=== PATIENT | female | born 1990 | race African-American/Black ===

== ENCOUNTER 2019-01-17 08:56 | Emergency (ER) | payer MEDICARE, MEDICAID ==
[~2019-01-17] VITALS: Ht 160 cm; Wt 118.2 kg
[~2019-01-17 08:56] MED LIST: CLON-528 PO; DOL10T PO; NORCO10T PO; ONDA8TAB9 PO; OXYC30TA88 PO; prozac PO
[2019-01-17] MEDS ORDERED: morphine 4 MG/ML inj SYRINge IM ONE (10:45)
[2019-01-17] MEDS ORDERED: ondansetron 4mg rapidly disintigrating tab PO ONE (10:45)
[2019-01-17 11:42] LABS: ABSOLUTE RETICS # 138800 /CUMM (23000-93000); HEMATOCRIT 31.8 % (35.0-45.0); MEAN CORPUSCULAR HEMOGLOBIN 32.3 PG (27.0-31.0); MEAN CORPUSCULAR HGB CONC 34.6 g/dL (33.0-36.5); MEAN CORPUSCULAR VOLUME 93.4 FL (78-98); MEAN PLATELET VOLUME 9.2 FL (7.4-10.4); PLATELET COUNT 263 X10'3 (140-440); RED CELL DISTRIBUTION WIDTH 19.9 % (11.5-14.5); RETICULOCYTE % (AUTO) 4.1 % (0.5-1.5); WHITE BLOOD COUNT 9.3 X10'3 (4.5-11.0)
[2019-01-17 11:46] LABS: ALANINE AMINOTRANSFERASE 18 U/L (12-78); ALBUMIN 3.4 G/DL (3.4-5.0); ALBUMIN/GLOBULIN RATIO 0.7 (1.1-1.5); ALKALINE PHOSPHATASE 87 IU/L (46-116); ANION GAP 8 (8-16); ASPARTATE AMINO TRANSFERASE 31 U/L (10-37); BILIRUBIN,TOTAL 1.1 MG/DL (0.1-1.0); BLOOD UREA NITROGEN 4 MG/DL (7-18); BUN/CREATININE RATIO 5.3 (6.6-38.0); CALCIUM 8.5 MG/DL (8.5-10.1); CHLORIDE 105 MMOL/L (99-107); CREATININE 0.76 MG/DL (0.40-0.90); LACTATE DEHYDROGENASE 424 U/L (81-234); POTASSIUM 3.9 MMOL/L (3.5-5.1); SODIUM 138 MMOL/L (135-145); TOTAL CARBON DIOXIDE 25.4 MMOL/L (24-32); TOTAL PROTEIN 8.3 G/DL (6.4-8.2); eGFR > 90 ML/MIN
[2019-01-17 11:51] LABS: GLUCOSE 98 MG/DL (70-104)
[2019-01-17] MEDS ORDERED: ketorolac trometh inj. 60 MG/2 ML VIAL IM ONE (11:55)
[2019-01-17 12:48] LABS: NUCLEATED RED BLOOD CELLS 3 /100WBC (0-0); PLATELET ESTIMATE NORMAL; TARGET CELLS 3+; TOTAL CELLS COUNTED 100
[2019-01-17 12:49] LABS: SPHEROCYTES 1+
[2019-01-17 12:50] LABS: POLYCHROMASIA FEW
[2019-01-17 12:54] LABS: ANISOCYTOSIS 2+
[2019-01-17 12:56] LABS: LARGE PLATELETS FEW; POIKILOCYTOSIS 2+
[2019-01-17 13:21] VITALS: BP 129/80
== END 2019-01-17 13:23 | disposition home or self-care (01) ==
LOC: ER 08:57
DX: M79.605 Pain in left leg (principal); Z86.718 Personal history of other venous thrombosis and embolism; Z87.01 Personal history of pneumonia (recurrent); Z86.2 Personal history of diseases of the blood and blood-forming organs and certain disorders involving the immune mechanism; Z88.8 Allergy status to other drugs, medicaments and biological substances; Z79.899 Other long term (current) drug therapy
CPT/HCPCS: 36415; 80053; 83615; 85025; 85045; 93971; 96372; 99284; J1885; J2270; J2405

== ENCOUNTER 2019-02-16 10:38 | Inpatient (IN) | payer MEDICARE, MEDICAID ==
[~2019-02-16] VITALS: Ht 160 cm; Wt 124.0 kg
[2019-02-16] MEDS ORDERED: normal saline 1000ML IV soln IVB ONE (11:25)
[2019-02-16] MEDS: morphine 4 MG/ML inj SYRINge IV PRN ×2 (11:33→12:23)
[2019-02-16 11:55] LABS: HEMATOCRIT 30.1 % (35.0-45.0); HEMOGLOBIN 10.1 g/dl (12.0-16.0); MEAN CORPUSCULAR HEMOGLOBIN 30.7 PG (27.0-31.0); MEAN CORPUSCULAR HGB CONC 33.5 g/dL (33.0-36.5); MEAN CORPUSCULAR VOLUME 91.5 FL (78-98); MEAN PLATELET VOLUME 8.5 FL (7.4-10.4); PLATELET COUNT 292 X10'3 (140-440); RED BLOOD COUNT 3.29 X10'6 (4.20-5.60); RED CELL DISTRIBUTION WIDTH 19.4 % (11.5-14.5)
[2019-02-16 12:09] LABS: ALANINE AMINOTRANSFERASE 30 U/L (12-78); ALBUMIN 3.3 G/DL (3.4-5.0); ALBUMIN/GLOBULIN RATIO 0.7 (1.1-1.5); ALKALINE PHOSPHATASE 103 IU/L (46-116); ANION GAP 5 (8-16); ASPARTATE AMINO TRANSFERASE 47 U/L (10-37); BILIRUBIN,TOTAL 1.8 MG/DL (0.1-1.0); BLOOD UREA NITROGEN 3 MG/DL (7-18); BUN/CREATININE RATIO 3.6 (6.6-38.0); CALCIUM 8.2 MG/DL (8.5-10.1); CHLORIDE 105 MMOL/L (99-107); CREATININE 0.83 MG/DL (0.40-0.90); GLUCOSE 119 MG/DL (70-104); LIPASE 88 U/L (73-393); POTASSIUM 4.4 MMOL/L (3.5-5.1); SODIUM 139 MMOL/L (135-145); TOTAL CARBON DIOXIDE 28.9 MMOL/L (24-32); TOTAL PROTEIN 7.8 G/DL (6.4-8.2); eGFR > 90 ML/MIN
[2019-02-16 12:41] LABS: WHITE BLOOD COUNT 8.7 X10'3 (4.5-11.0)
[2019-02-16 12:54] LABS: ANISOCYTOSIS 2+; LARGE PLATELETS FEW; NUCLEATED RED BLOOD CELLS 5 /100WBC (0-0); PLATELET ESTIMATE NORMAL; POIKILOCYTOSIS 2+; TOTAL CELLS COUNTED 100
[2019-02-16 12:55] LABS: POLYCHROMASIA FEW; SPHEROCYTES 1+; TARGET CELLS 2+
[2019-02-16 12:56] LABS: ELLIPTOCYTES 1+
--- NOTE | 2019-02-16 13:32 | NUR ---
FIRST CONTACT WITH PT, PT IS RESTING QUIETLY IN DARK ROOM, IV TO RT UPPER ARM IS PATENT AND CLEAR, LITER BOLUS OF NS IS DONE, PT C/O PAIN TO BILATERAL LEGS AND RT ARM 01/15, RESP EVEN AND UNLABORED,
--- NOTE | 2019-02-16 13:37 | NUR ---
EKG already done, Dr Waggoner aware, he is also aware pt is requesting more pain medication
[2019-02-16] MEDS ORDERED: morphine 4 MG/ML inj SYRINge IV ONE (13:40)
[2019-02-16] MEDS ORDERED: ondansetron/PF 4mg/2ml inj IV PRN (15:00)
[2019-02-16] MEDS ORDERED: mag hydrox/Alum hydrox/simeth 30ml oral suspension PO PRN (15:00)
[2019-02-16] MEDS ORDERED: diphenhydrAMINE 25mg capsule PO PRN (15:00)
[2019-02-16] MEDS ORDERED: acetaminophen 325mg tablet PO PRN (15:00)
[2019-02-16] MEDS ORDERED: potassium Cl 20 mEq SR tablet PO PRN ×2 (15:00)
[2019-02-16] MEDS ORDERED: magnesium Cl slow-release 64mg tablet PO PRN (15:00)
[2019-02-16] MEDS ORDERED: magnesium 4gm in 100ml NS 100 ML IV PRN (15:00)
[2019-02-16] MEDS ORDERED: magnesium hydroxide 30ml (MOM) UD suspension PO PRN (15:00)
[2019-02-16] MEDS ORDERED: potassium CL 10mEq/100ml bag 100 ML IV PRN ×2 (15:00)
[2019-02-16] MEDS ORDERED: magnesium 2GM in 50ml NS 50 ML IV PRN (15:00)
[2019-02-16] MEDS ORDERED: WARF-55 PO (15:05)
[2019-02-16] MEDS ORDERED: pneumococcal 23-VAL P-sac vacc 25 mcg/0.5ml vial IMVAC ONE (15:05)
[2019-02-16] MEDS ORDERED: HYDR200C PO (15:05)
[2019-02-16] MEDS ORDERED: GABA600T13 PO (15:05)
[2019-02-16] MEDS ORDERED: OXYC-658 PO (15:05)
[2019-02-16] MEDS ORDERED: CLON0.1T20 PO (15:05)
[2019-02-16] MEDS ORDERED: HYDR-3717 PO (15:05)
[2019-02-16] MEDS ORDERED: DULO60CA65 PO (15:06)
[2019-02-16] MEDS ORDERED: hydrOXYzine 10 MG tablet PO PRN (15:15)
[2019-02-16] MEDS ORDERED: cloNIDine 0.1 mg tablet PO PRN (15:15)
--- NOTE | 2019-02-16 15:48 | NUR ---
paged Dr Masters for critical value, INR 4.8
--- NOTE | 2019-02-16 16:15 | NUR ---
dr ba aware of INR 4.8
[2019-02-16] MEDS: normal saline 1000ml 1,000 ML IV SCH ×2 (16:18→23:14)
[2019-02-16 16:36] LABS: HEMATOCRIT 28.8 % (35.0-45.0); HEMOGLOBIN 9.6 g/dl (12.0-16.0); MEAN CORPUSCULAR HEMOGLOBIN 30.6 PG (27.0-31.0); MEAN CORPUSCULAR HGB CONC 33.3 g/dL (33.0-36.5); MEAN CORPUSCULAR VOLUME 91.9 FL (78-98); MEAN PLATELET VOLUME 8.4 FL (7.4-10.4); PLATELET COUNT 269 X10'3 (140-440); RED BLOOD COUNT 3.13 X10'6 (4.20-5.60); RED CELL DISTRIBUTION WIDTH 19.3 % (11.5-14.5)
[2019-02-16] MEDS ORDERED: non-formulary drug (Gabapentin 1 TAB) PO SCH (17:00)
[2019-02-16 17:18] LABS: NUCLEATED RED BLOOD CELLS 1 /100WBC (0-0); TOTAL CELLS COUNTED 100
[2019-02-16 17:19] LABS: POIKILOCYTOSIS 4+; POLYCHROMASIA FEW; SCHISTOCYTES FEW; TARGET CELLS 3+
[2019-02-16 17:20] LABS: ANISOCYTOSIS 2+; ELLIPTOCYTES 1+; PLATELET ESTIMATE NORMAL; SPHEROCYTES FEW
[2019-02-16 18:00] VITALS: BP 115/76
--- NOTE | 2019-02-16 18:50 | NUR ---
Patient in room [facility]. I have received report from SUKH Funes and had the opportunity to ask questions and assume patient care.
[2019-02-16] MEDS: morphine 2 MG/ML inj. syringe IV PRN ×2 (19:40→23:54)
[2019-02-16 20:18] VITALS: BP 115/76
[2019-02-16 20:44] VITALS: BP 123/81
[2019-02-16] MEDS ORDERED: HYDROXYUREA PO SCH (21:00)
[2019-02-16] MEDS: gabapentin 300mg capsule PO SCH ×2 (21:00→22:01)
[2019-02-16] MEDS: HYDROXYUREA PO SCH (22:01)
--- NOTE | 2019-02-16 23:07 | NUR ---
Patients blood transfusion stopped at 2240. I had entered the last set of vitals and pressed END, not realizing that Ihad not entered the one hour vitals. I asked the charge for help and she undid my last set of vitals thinking that i would be able to enter the one hour set, and then re enter the last set. It would not let us enter anything else, and the transfusion stop shows it ended at 2141 instead of 2241.VSS for 1.hr stephanie 99.0,HR99, R / 2240:99.0 99Hr, R: Patient is resting and in no apparent distress.
[2019-02-17 04:03] VITALS: BP 125/77
[2019-02-17 04:53] LABS: BASOPHILS # (AUTO) 0.1 X10'3 (0-0.2); BASOPHILS % (AUTO) 0.7 % (0-1); EOSINOPHILS # (AUTO) 0.7 X10'3 (0-0.9); EOSINOPHILS % (AUTO) 5.7 % (0-6); HEMATOCRIT 30.7 % (35.0-45.0); HEMOGLOBIN 10.5 g/dl (12.0-16.0); MEAN CORPUSCULAR HEMOGLOBIN 30.8 PG (27.0-31.0); MEAN CORPUSCULAR HGB CONC 34.1 g/dL (33.0-36.5); MEAN CORPUSCULAR VOLUME 90.3 FL (78-98); MEAN PLATELET VOLUME 9.5 FL (7.4-10.4); MONOCYTES # (AUTO) 1.3 X10'3 (0-0.9); MONOCYTES % (AUTO) 10.3 % (2-12); NEUTROPHILS # (AUTO) 6.7 X10'3 (1.8-7.7); NEUTROPHILS % (AUTO) 52.3 % (42-75); PLATELET COUNT 278 X10'3 (140-440); RED CELL DISTRIBUTION WIDTH 18.8 % (11.5-14.5); WHITE BLOOD COUNT 12.8 X10'3 (4.5-11.0)
--- NOTE | 2019-02-17 05:20 | NUR ---
[place] given at 2200,it was due at 1999. There had been an order for it to be given at 1700, prior to my shift so it was red on my eMAR when I gave the HS dose. It is still showing red but for the 2100 dose. It looks like it defaulted to the 1700 time when I gave my medication, because it shows in history that I gave the 1700 dose. On the time that I gave it on the eMAR it shows the exact time given.
[2019-02-17 05:28] LABS: ALANINE AMINOTRANSFERASE 28 U/L (12-78); ALBUMIN/GLOBULIN RATIO 0.7 (1.1-1.5); ALKALINE PHOSPHATASE 84 IU/L (46-116); ANION GAP 7 (8-16); ASPARTATE AMINO TRANSFERASE 44 U/L (10-37); BILIRUBIN,TOTAL 1.4 MG/DL (0.1-1.0); BLOOD UREA NITROGEN 3 MG/DL (7-18); CALCIUM 7.7 MG/DL (8.5-10.1); CHLORIDE 107 MMOL/L (99-107); CHOLESTEROL 111 MG/DL (0-200); CREATININE 0.75 MG/DL (0.40-0.90); GLUCOSE 106 MG/DL (70-104); HDL CHOLESTEROL 28 MG/DL (35-60); LDL CHOLESTEROL 62 MG/DL (50-100); MAGNESIUM 1.9 MG/DL (1.5-2.4); SODIUM 140 MMOL/L (135-145); TOTAL CARBON DIOXIDE 26.2 MMOL/L (24-32); TOTAL PROTEIN 7.2 G/DL (6.4-8.2); TRIGLYCERIDES 215 MG/DL (20-135); eGFR > 90 ML/MIN
[2019-02-17] MEDS: oxyCODONE IR 5mg (immed. release) tablet PO PRN ×3 (05:43→17:28)
[2019-02-17] MEDS: normal saline 1000ml 1,000 ML IV SCH ×2 (05:44→14:53)
--- NOTE | 2019-02-17 06:47 | NUR ---
Problems reprioritized. Patient report given, questions answered & plan of care reviewed with Vandana & Emilie LUZ.
[2019-02-17 07:00] VITALS: BP 143/96
[2019-02-17] MEDS ORDERED: non-formulary drug (Duloxetine HCl 1 CAP) PO SCH (08:00)
[2019-02-17] MEDS: K and/or MAG REPLACEMENT MC SCH (08:00)
[2019-02-17] MEDS: HYDROXYUREA PO SCH ×3 (08:00→21:00)
[2019-02-17] MEDS: morphine 4 MG/ML inj SYRINge IV PRN ×2 (08:04→11:17)
[2019-02-17] MEDS: gabapentin 300mg capsule PO SCH ×4 (08:06→20:21)
[2019-02-17] MEDS: duloxetine 30mg CAPSULE.DR PO SCH (08:07)
[2019-02-17 08:30] LABS: NUCLEATED RED BLOOD CELLS 3 /100WBC (0-0); TOTAL CELLS COUNTED 100
[2019-02-17 08:31] LABS: ANISOCYTOSIS 2+; PLATELET ESTIMATE NORMAL
[2019-02-17 08:32] LABS: SCHISTOCYTES FEW; SPHEROCYTES 1+; TARGET CELLS 2+
[2019-02-17 08:33] LABS: POLYCHROMASIA FEW
[2019-02-17 08:35] LABS: ELLIPTOCYTES FEW; POIKILOCYTOSIS 3+
[2019-02-17 11:30] VITALS: BP 128/89
[2019-02-17] MEDS: morphine 2 MG/ML inj. syringe IV PRN ×2 (11:45→20:21)
--- NOTE | 2019-02-17 18:39 | NUR ---
Problems reprioritized. Patient report given, questions answered & plan of care reviewed with SUKH Forbes.
[2019-02-17 19:00] VITALS: BP 143/97
[2019-02-18 00:17] VITALS: BP 133/86
[2019-02-18] MEDS: oxyCODONE IR 5mg (immed. release) tablet PO PRN ×5 (00:30→19:22)
[2019-02-18] MEDS: normal saline 1000ml 1,000 ML IV SCH ×3 (00:32→20:49)
[2019-02-18 06:34] LABS: BASOPHILS # (AUTO) 0.1 X10'3 (0-0.2); BASOPHILS % (AUTO) 1.1 % (0-1); EOSINOPHILS # (AUTO) 0.6 X10'3 (0-0.9); EOSINOPHILS % (AUTO) 5.2 % (0-6); HEMATOCRIT 30.9 % (35.0-45.0); HEMOGLOBIN 10.4 g/dl (12.0-16.0); LYMPHOCYTES # (AUTO) 3.7 X10'3 (1.1-4.8); LYMPHOCYTES % (AUTO) 30.8 % (21-51); MEAN CORPUSCULAR HEMOGLOBIN 30.5 PG (27.0-31.0); MEAN CORPUSCULAR HGB CONC 33.8 g/dL (33.0-36.5); MEAN CORPUSCULAR VOLUME 90.4 FL (78-98); MEAN PLATELET VOLUME 9.1 FL (7.4-10.4); MONOCYTES # (AUTO) 1.1 X10'3 (0-0.9); MONOCYTES % (AUTO) 8.9 % (2-12); NEUTROPHILS # (AUTO) 6.5 X10'3 (1.8-7.7); PLATELET COUNT 294 X10'3 (140-440); RED BLOOD COUNT 3.41 X10'6 (4.20-5.60); RED CELL DISTRIBUTION WIDTH 18.5 % (11.5-14.5); WHITE BLOOD COUNT 12.1 X10'3 (4.5-11.0)
[2019-02-18] MEDS: duloxetine 30mg CAPSULE.DR PO SCH (06:41)
--- NOTE | 2019-02-18 06:41 | NUR ---
Problems reprioritized. Patient report given, questions answered & plan of care reviewed with Emilie Ross RN.
[2019-02-18] MEDS: gabapentin 300mg capsule PO SCH ×4 (06:42→20:45)
[2019-02-18 06:44] LABS: ALANINE AMINOTRANSFERASE 24 U/L (12-78); ALBUMIN/GLOBULIN RATIO 0.7 (1.1-1.5); ALKALINE PHOSPHATASE 79 IU/L (46-116); ANION GAP 8 (8-16); ASPARTATE AMINO TRANSFERASE 36 U/L (10-37); BILIRUBIN,TOTAL 1.6 MG/DL (0.1-1.0); BLOOD UREA NITROGEN 3 MG/DL (7-18); BUN/CREATININE RATIO 4.1 (6.6-38.0); CALCIUM 7.9 MG/DL (8.5-10.1); CHLORIDE 107 MMOL/L (99-107); CREATININE 0.74 MG/DL (0.40-0.90); GLUCOSE 88 MG/DL (70-104); MAGNESIUM 1.9 MG/DL (1.5-2.4); POTASSIUM 4.1 MMOL/L (3.5-5.1); SODIUM 142 MMOL/L (135-145); TOTAL CARBON DIOXIDE 27.5 MMOL/L (24-32); TOTAL PROTEIN 7.3 G/DL (6.4-8.2); eGFR > 90 ML/MIN
[2019-02-18 06:57] VITALS: BP 123/81
--- NOTE | 2019-02-18 07:00 | NUR ---
Patient in room [facility]. I have received report from SUKH Forbes and had the opportunity to ask questions and assume patient care.
[2019-02-18 07:17] LABS: PLATELET ESTIMATE NORMAL
[2019-02-18 07:18] LABS: ANISOCYTOSIS 2+; HYPOCHROMASIA 1+
[2019-02-18 07:19] LABS: POLYCHROMASIA 2+; SICKLE CELLS FEW; TARGET CELLS 2+
[2019-02-18] MEDS: HYDROXYUREA PO SCH ×2 (08:00→12:43)
[2019-02-18] MEDS: K and/or MAG REPLACEMENT MC SCH (08:00)
[2019-02-18 12:00] VITALS: BP 140/89
[2019-02-18] MEDS ORDERED: acetaminophen 325mg tablet PO PRN (12:30)
[2019-02-18 18:00] VITALS: BP_SYST 102; BP_SYST 153; BP_DIAS 63; BP_DIAS 84
--- NOTE | 2019-02-18 18:47 | NUR ---
Problems reprioritized. Patient report given, questions answered & plan of care reviewed with SUKH Forbes.
--- NOTE | 2019-02-18 18:51 | NUR ---
Patient in room [facility]. I have received report from Emilie Ross RN and had the opportunity to ask questions and assume patient care.
[2019-02-18] MEDS ORDERED: warfarin 5mg tablet PO ONE (21:00)
[2019-02-18] MEDS: morphine 2 MG/ML inj. syringe IV PRN (23:52)
[2019-02-19] VITALS: BP 125/84
--- NOTE | 2019-02-19 00:56 | NUR ---
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 She did not complain of SOB. Patient states that the pain is at 7-8 and it feels like a sharp, throbbing pain. . She also stated that she thinks the pain is from her sickle cell. VSS: 126/86, HR: 102,R:15, 95% o2. I called tele and she is in Sinus Rhythm, HR running in the 90's. Morphine 4mg was given. @ 7685. Patient says a couple mins after morphine was given that her pain is now a 6/7 and the sharp/throb is not as bad. Hospitalist was paged [phone], He asked if patient had Morphine, i informed him that I already gave it,no new orders given. 0005: checked on patient. She is resting with eyes closed, in no apparent distress. 0011: checked pt and she is still resting with eyes closed in no apparent distress. Will continue to monitor.
[2019-02-19] MEDS: oxyCODONE IR 5mg (immed. release) tablet PO PRN ×5 (03:24→21:12)
[2019-02-19 05:59] LABS: ALANINE AMINOTRANSFERASE 21 U/L (12-78); ALBUMIN 3.2 G/DL (3.4-5.0); ALBUMIN/GLOBULIN RATIO 0.7 (1.1-1.5); ALKALINE PHOSPHATASE 81 IU/L (46-116); ANION GAP 8 (8-16); ASPARTATE AMINO TRANSFERASE 29 U/L (10-37); BILIRUBIN,TOTAL 1.5 MG/DL (0.1-1.0); BLOOD UREA NITROGEN 4 MG/DL (7-18); BUN/CREATININE RATIO 5.5 (6.6-38.0); CALCIUM 8.4 MG/DL (8.5-10.1); CHLORIDE 105 MMOL/L (99-107); CREATININE 0.73 MG/DL (0.40-0.90); GLUCOSE 87 MG/DL (70-104); MAGNESIUM 1.7 MG/DL (1.5-2.4); SODIUM 140 MMOL/L (135-145); TOTAL PROTEIN 7.7 G/DL (6.4-8.2); eGFR > 90 ML/MIN
[2019-02-19 06:12] LABS: BASOPHILS # (AUTO) 0.1 X10'3 (0-0.2); HEMOGLOBIN 10.5 g/dl (12.0-16.0); MONOCYTES # (AUTO) 1.2 X10'3 (0-0.9)
[2019-02-19 06:15] LABS: BASOPHILS % (AUTO) 0.9 % (0-1); EOSINOPHILS # (AUTO) 0.7 X10'3 (0-0.9); EOSINOPHILS % (AUTO) 5.5 % (0-6); HEMATOCRIT 31.3 % (35.0-45.0); LYMPHOCYTES # (AUTO) 3.8 X10'3 (1.1-4.8); LYMPHOCYTES % (AUTO) 30.4 % (21-51); MEAN CORPUSCULAR HEMOGLOBIN 30.9 PG (27.0-31.0); MEAN CORPUSCULAR HGB CONC 33.5 g/dL (33.0-36.5); MEAN PLATELET VOLUME 9.2 FL (7.4-10.4); MONOCYTES % (AUTO) 9.8 % (2-12); NEUTROPHILS # (AUTO) 6.7 X10'3 (1.8-7.7); NEUTROPHILS % (AUTO) 53.4 % (42-75); PLATELET COUNT 299 X10'3 (140-440); RED CELL DISTRIBUTION WIDTH 18.2 % (11.5-14.5); WHITE BLOOD COUNT 12.6 X10'3 (4.5-11.0)
--- NOTE | 2019-02-19 06:44 | NUR ---
Problems reprioritized. Patient report given, questions answered & plan of care reviewed with Diamond LUZ.
[2019-02-19 07:00] VITALS: BP 120/79
[2019-02-19 07:17] LABS: ANISOCYTOSIS 2+; PLATELET ESTIMATE NORMAL
[2019-02-19 07:18] LABS: POLYCHROMASIA 2+
[2019-02-19 07:19] LABS: POIKILOCYTOSIS 2+; SCHISTOCYTES FEW; TARGET CELLS 2+; TEAR DROP CELLS FEW
[2019-02-19] MEDS: K and/or MAG REPLACEMENT MC SCH (08:00)
[2019-02-19] MEDS: HYDROXYUREA PO SCH ×3 (08:00→21:00)
[2019-02-19] MEDS: gabapentin 300mg capsule PO SCH ×4 (08:24→21:07)
[2019-02-19] MEDS: duloxetine 30mg CAPSULE.DR PO SCH (08:24)
[2019-02-19] MEDS: normal saline 1000ml 1,000 ML IV SCH ×2 (08:32→15:44)
[2019-02-19 11:50] VITALS: BP 139/89
--- NOTE | 2019-02-19 12:44 | NUR ---
Pt C/O 6/10 sharp chest pain, radiating to back. VS 143/91, HR 104, O2 94% RA. 12 lead EKG being performed, results pending.
[2019-02-19 12:45] VITALS: BP 143/91
[2019-02-19 18:00] VITALS: BP 131/90
--- NOTE | 2019-02-19 18:30 | NUR ---
Patient in room [facility]. I have received report from Dejah LUZ and had the opportunity to ask questions and assume patient care.
--- NOTE | 2019-02-19 18:32 | NUR ---
Problems reprioritized. Patient report given, questions answered & plan of care reviewed with SUKH Werner.
[2019-02-19] MEDS ORDERED: warfarin 5mg tablet PO ONE (21:00)
[2019-02-20] VITALS: BP 130/87
[2019-02-20] MEDS: normal saline 1000ml 1,000 ML IV SCH (01:02)
[2019-02-20] MEDS: oxyCODONE IR 5mg (immed. release) tablet PO PRN ×2 (03:34→08:11)
[2019-02-20 05:32] LABS: BASOPHILS # (AUTO) 0.2 X10'3 (0-0.2); BASOPHILS % (AUTO) 1.4 % (0-1); EOSINOPHILS # (AUTO) 1.2 X10'3 (0-0.9); EOSINOPHILS % (AUTO) 9.7 % (0-6); HEMATOCRIT 32.5 % (35.0-45.0); HEMOGLOBIN 10.9 g/dl (12.0-16.0); LYMPHOCYTES # (AUTO) 3.1 X10'3 (1.1-4.8); LYMPHOCYTES % (AUTO) 24.5 % (21-51); MEAN CORPUSCULAR HEMOGLOBIN 30.7 PG (27.0-31.0); MEAN CORPUSCULAR HGB CONC 33.6 g/dL (33.0-36.5); MEAN CORPUSCULAR VOLUME 91.3 FL (78-98); MEAN PLATELET VOLUME 8.9 FL (7.4-10.4); MONOCYTES # (AUTO) 1.3 X10'3 (0-0.9); MONOCYTES % (AUTO) 10.5 % (2-12); NEUTROPHILS # (AUTO) 6.8 X10'3 (1.8-7.7); NEUTROPHILS % (AUTO) 53.9 % (42-75); PLATELET COUNT 311 X10'3 (140-440); RED BLOOD COUNT 3.56 X10'6 (4.20-5.60); RED CELL DISTRIBUTION WIDTH 17.7 % (11.5-14.5); WHITE BLOOD COUNT 12.5 X10'3 (4.5-11.0)
[2019-02-20 05:48] LABS: ALANINE AMINOTRANSFERASE 20 U/L (12-78); ALBUMIN 3.3 G/DL (3.4-5.0); ALBUMIN/GLOBULIN RATIO 0.7 (1.1-1.5); ALKALINE PHOSPHATASE 78 IU/L (46-116); ANION GAP 8 (8-16); ASPARTATE AMINO TRANSFERASE 34 U/L (10-37); BILIRUBIN,TOTAL 1.3 MG/DL (0.1-1.0); BLOOD UREA NITROGEN 5 MG/DL (7-18); BUN/CREATININE RATIO 6.4 (6.6-38.0); CALCIUM 9.4 MG/DL (8.5-10.1); CHLORIDE 104 MMOL/L (99-107); CREATININE 0.78 MG/DL (0.40-0.90); GLUCOSE 101 MG/DL (70-104); MAGNESIUM 1.7 MG/DL (1.5-2.4); POTASSIUM 3.8 MMOL/L (3.5-5.1); SODIUM 140 MMOL/L (135-145); TOTAL PROTEIN 7.9 G/DL (6.4-8.2); eGFR > 90 ML/MIN
--- NOTE | 2019-02-20 06:00 | NUR ---
Problems reprioritized. Patient report given, questions answered & plan of care reviewed with Makenna LUZ.
--- NOTE | 2019-02-20 06:30 | NUR ---
Patient in room [facility]. I have received report from Debbi LUZ and had the opportunity to ask questions and assume patient care.
[2019-02-20 07:23] VITALS: BP 133/85
[2019-02-20] MEDS: K and/or MAG REPLACEMENT MC SCH (08:00)
[2019-02-20] MEDS: HYDROXYUREA PO SCH (08:00)
[2019-02-20] MEDS: gabapentin 300mg capsule PO SCH (08:07)
[2019-02-20] MEDS: duloxetine 30mg CAPSULE.DR PO SCH (08:07)
[2019-02-20 08:17] LABS: ANISOCYTOSIS 1+; PLATELET ESTIMATE NORMAL; TARGET CELLS 3+
[2019-02-20 08:18] LABS: POIKILOCYTOSIS 1+; POLYCHROMASIA 2+
[2019-02-20] MEDS ORDERED: OXYC10TA47 PO (09:12)
--- NOTE | 2019-02-20 09:33 | NUR ---
Dr. Masters currently working on discharge.
--- NOTE | 2019-02-20 10:00 | NUR ---
Patient is discharged on nursing end. Waiting on MD to bring medication scrip for pain medications.
--- NOTE | 2019-02-20 11:07 | NUR ---
Patient discharged, taken by to [facility]. Belongings retrieved from security. A&Ox4. All education completed with patients. Patient aware of next doses of medications at home. Patient has pain medication scrip in hand to take to her pharmacy.
== END 2019-02-20 11:05 | disposition home or self-care (01) | DRG 812 ==
LOC: ER 10:39 → SUR 3N 17:57 → CMPBEDREQ 19:04
PROVIDERS: ADMIT Family Medicine; ATTEND Family Medicine
PROC: 30233N1 Transfusion of Nonautologous Red Blood Cells into Peripheral Vein, Percutaneous Approach (ICD-10-PCS; principal; 2019-02-16)
PROC: 3E0234Z Introduction of Serum, Toxoid and Vaccine into Muscle, Percutaneous Approach (ICD-10-PCS; 2019-02-16)
DX: D57.00 Hb-SS disease with crisis, unspecified (principal); Z68.42 Body mass index [BMI] 45.0-49.9, adult; E66.01 Morbid (severe) obesity due to excess calories; D64.9 Anemia, unspecified; F41.9 Anxiety disorder, unspecified; D72.829 Elevated white blood cell count, unspecified; Z83.2 Family history of diseases of the blood and blood-forming organs and certain disorders involving the immune mechanism; Z86.718 Personal history of other venous thrombosis and embolism; Z87.891 Personal history of nicotine dependence; Z79.01 Long term (current) use of anticoagulants; Z23 Encounter for immunization
CPT/HCPCS: 36415; 36430; 71045; 80053; 80061; 83605; 83690; 83735; 84145; 84484; 85025; 85610; 86885; 86900; 86901; 86920; 87040; 87081; 93005; 93306; 96374; 99285; G0378; J2270; J7030; P9016; Q0163

== ENCOUNTER 2019-03-01 22:12 | Inpatient (IN) | payer MEDICARE, MEDICAID ==
[~2019-03-01] VITALS: Ht 160 cm; Wt 118.2 kg
[~2019-03-01 22:12] MED LIST changes: -CLON-528 PO; +CLON0.1T20 PO; -DOL10T PO; +DULO60CA65 PO; +GABA600T13 PO; +HYDR-3717 PO; +HYDR200C PO; -NORCO10T PO; -ONDA8TAB9 PO; +OXYC-658 PO; +OXYC10TA47 PO; -OXYC30TA88 PO; +WARF-55 PO; -prozac PO
[2019-03-01 22:59] LABS: PARTIAL THROMBOPLASTIN TIME 41 SECONDS (22-32)
[2019-03-01 23:02] LABS: ALANINE AMINOTRANSFERASE 17 U/L (12-78); ALBUMIN 4.2 G/DL (3.4-5.0); ALBUMIN/GLOBULIN RATIO 0.8 (1.1-1.5); ALKALINE PHOSPHATASE 75 IU/L (46-116); ANION GAP 11 (8-16); ASPARTATE AMINO TRANSFERASE 26 U/L (10-37); BILIRUBIN,TOTAL 1.4 MG/DL (0.1-1.0); BLOOD UREA NITROGEN 5 MG/DL (7-18); BUN/CREATININE RATIO 6.3 (6.6-38.0); CALCIUM 8.9 MG/DL (8.5-10.1); CHLORIDE 105 MMOL/L (99-107); GLUCOSE 99 MG/DL (70-104); POTASSIUM 3.3 MMOL/L (3.5-5.1); SODIUM 141 MMOL/L (135-145); TOTAL CARBON DIOXIDE 24.6 MMOL/L (24-32); TOTAL PROTEIN 9.2 G/DL (6.4-8.2); eGFR > 90 ML/MIN
[2019-03-01 23:06] LABS: BASOPHILS # (AUTO) 0.1 X10'3 (0-0.2); EOSINOPHILS # (AUTO) 0.1 X10'3 (0-0.9)
[2019-03-01 23:07] LABS: BASOPHILS % (AUTO) 0.8 % (0-1); EOSINOPHILS % (AUTO) 0.4 % (0-6); HEMOGLOBIN 12.5 g/dl (12.0-16.0); LYMPHOCYTES # (AUTO) 3.9 X10'3 (1.1-4.8); LYMPHOCYTES % (AUTO) 24.8 % (21-51); MEAN CORPUSCULAR HEMOGLOBIN 31.2 PG (27.0-31.0); MEAN CORPUSCULAR HGB CONC 34.6 g/dL (33.0-36.5); MEAN CORPUSCULAR VOLUME 90.1 FL (78-98); MONOCYTES % (AUTO) 6.5 % (2-12); NEUTROPHILS # (AUTO) 10.5 X10'3 (1.8-7.7); NEUTROPHILS % (AUTO) 67.5 % (42-75); PLATELET COUNT 453 X10'3 (140-440); RED CELL DISTRIBUTION WIDTH 16.5 % (11.5-14.5); WHITE BLOOD COUNT 15.6 X10'3 (4.5-11.0)
[2019-03-01] MEDS ORDERED: morphine 10mg/ml inj. IV ONE (23:25)
[2019-03-01 23:33] LABS: RED BLOOD COUNT 4.07 X10'6 (4.20-5.60); RETICULOCYTE % (AUTO) 2.2 % (0.5-1.5)
[2019-03-01] MEDS ORDERED: ondansetron/PF 4mg/2ml inj IV ONE (23:40)
[2019-03-01 23:49] LABS: PLATELET ESTIMATE INCREASED; TARGET CELLS 2+
[2019-03-01 23:50] LABS: ANISOCYTOSIS 1+
[2019-03-02] MEDS ORDERED: morphine 10mg/ml inj. IV ONE (00:40)
--- NOTE | 2019-03-02 00:43 | NUR ---
Patient continues to complain of 7/10 pain. She shows no outward signs of pain. She is resting comfortably watching a show on her phone.
--- NOTE | 2019-03-02 01:26 | NUR ---
Patient continues to complain of 6/10 pain. She is in no obvious distress. Dr. Orellana updated on patient's condition.
[2019-03-02] MEDS ORDERED: acetaminophen 325mg tablet PO PRN (02:25)
[2019-03-02] MEDS ORDERED: mag hydrox/Alum hydrox/simeth 30ml oral suspension PO PRN (02:25)
[2019-03-02] MEDS ORDERED: magnesium hydroxide 30ml (MOM) UD suspension PO PRN (02:25)
[2019-03-02] MEDS ORDERED: morphine/NS 5 mg/ml CADD 50 ML IV SCH (02:25)
[2019-03-02] MEDS ORDERED: CADD PCA waste documentation MC PRN (02:25)
[2019-03-02] MEDS ORDERED: naloxone 0.4 mg/ml inj IV PRN (02:25)
[2019-03-02] MEDS ORDERED: ondansetron/PF 4mg/2ml inj IV PRN (02:25)
[2019-03-02] MEDS ORDERED: cloNIDine 0.1 mg tablet PO PRN (02:30)
[2019-03-02] MEDS ORDERED: hydrOXYzine 10 MG tablet PO PRN (02:30)
[2019-03-02 02:44] LABS: CLARITY,URINE CLEAR (Clear); COLOR,URINE YELLOW (Yellow); GLUCOSE, URINE NEGATIVE (Neg); KETONES,URINE NEGATIVE (Neg); LEUKOCYTE ESTERASE ,URINE NEGATIVE (Neg); NITRITES, URINE NEGATIVE (Neg); OCCULT BLOOD,URINE SMALL (Neg); PH,URINE 6.5 (4.8-8.0); PROTEIN,URINE 30 mg/dl (Neg); URINE HCG NEGATIVE (NEG); UROBILINOGEN,URINE 0.2 E.U/dL (0.2-1.0)
[2019-03-02 02:54] LABS: UA COLLECTION TYPE CLN CATCH MIDSTREAM
[2019-03-02 02:59] LABS: RBC,URINE 0-2 /HPF (0-2); WBC,URINE NONE SEEN /HPF (0-4)
[2019-03-02 03:00] LABS: BACTERIA,URINE FEW /HPF (Neg); SQUAMOUS EPITHELIAL CELL,UR FEW /LPF (FEW)
[2019-03-02] MEDS: normal saline 1000ml 1,000 ML IV SCH ×3 (03:08→22:22)
--- NOTE | 2019-03-02 04:00 | NUR ---
Received report from Patrick in the ED. Pt arrived via wheelchair with VSS and no signs of distress. Will continue to monitor.
[2019-03-02] MEDS: HYDROmorphone/NS 1 mg/ml CADD 50 ML IV SCH ×11 (04:26→23:00)
[2019-03-02 04:29] VITALS: BP 121/74
--- NOTE | 2019-03-02 06:00 | NUR ---
Patient in room [facility]. I have received report from SUKH Payton and had the opportunity to ask questions and assume patient care.
--- NOTE | 2019-03-02 06:15 | NUR ---
Problems reprioritized. Patient report given, questions answered & plan of care reviewed with Johana LUZ.
[2019-03-02 07:00] VITALS: BP 148/98
[2019-03-02] MEDS: docusate sod 100mg capsule PO SCH ×2 (08:00→21:21)
[2019-03-02] MEDS: duloxetine 30mg CAPSULE.DR PO SCH (08:24)
[2019-03-02] MEDS: gabapentin 300mg capsule PO SCH ×4 (08:24→21:22)
[2019-03-02] MEDS ORDERED: potassium Cl 20 mEq SR tablet PO PRN ×2 (08:55)
[2019-03-02] MEDS ORDERED: magnesium 4gm in 100ml NS 100 ML IV PRN (08:55)
[2019-03-02] MEDS ORDERED: potassium CL 10mEq/100ml bag 100 ML IV PRN (08:55)
[2019-03-02] MEDS ORDERED: magnesium Cl slow-release 64mg tablet PO PRN (08:55)
--- NOTE | 2019-03-02 10:37 | NUR ---
Yolanda Campos Rm 5614 c/o persistent pain. Will you round soon on Surgical? PAGE TO DR MERCADO
[2019-03-02 11:00] VITALS: BP 134/88
[2019-03-02] MEDS: oxyCODONE SR 10mg (sust. release) tab PO SCH ×2 (15:23→23:58)
--- NOTE | 2019-03-02 18:37 | NUR ---
Problems reprioritized. Patient report given, questions answered & plan of care reviewed with SUKH Agee .
[2019-03-02] MEDS ORDERED: warfarin 5mg tablet PO SCH (19:00)
[2019-03-02 20:00] VITALS: BP 134/87
[2019-03-02] MEDS ORDERED: warfarin 5mg tablet PO ONE (21:00)
[2019-03-03] VITALS: BP 134/94
[2019-03-03] MEDS: HYDROmorphone/NS 1 mg/ml CADD 50 ML IV SCH ×6 (01:00→11:00)
[2019-03-03] MEDS: normal saline 1000ml 1,000 ML IV SCH (04:16)
[2019-03-03 05:18] LABS: BASOPHILS # (AUTO) 0.1 X10'3 (0-0.2); HEMOGLOBIN 11.1 g/dl (12.0-16.0); MONOCYTES # (AUTO) 1.2 X10'3 (0-0.9)
[2019-03-03 05:20] LABS: BASOPHILS % (AUTO) 0.9 % (0-1); EOSINOPHILS # (AUTO) 0.6 X10'3 (0-0.9); EOSINOPHILS % (AUTO) 3.9 % (0-6); HEMATOCRIT 32.7 % (35.0-45.0); LYMPHOCYTES # (AUTO) 5.9 X10'3 (1.1-4.8); LYMPHOCYTES % (AUTO) 38.6 % (21-51); MEAN CORPUSCULAR HEMOGLOBIN 30.3 PG (27.0-31.0); MEAN CORPUSCULAR HGB CONC 33.9 g/dL (33.0-36.5); MEAN CORPUSCULAR VOLUME 89.6 FL (78-98); MONOCYTES % (AUTO) 7.7 % (2-12); NEUTROPHILS # (AUTO) 7.5 X10'3 (1.8-7.7); NEUTROPHILS % (AUTO) 48.9 % (42-75); PLATELET COUNT 371 X10'3 (140-440); RED BLOOD COUNT 3.65 X10'6 (4.20-5.60); RED CELL DISTRIBUTION WIDTH 16.3 % (11.5-14.5); WHITE BLOOD COUNT 15.2 X10'3 (4.5-11.0)
[2019-03-03 05:36] LABS: ALANINE AMINOTRANSFERASE 16 U/L (12-78); ALBUMIN 3.4 G/DL (3.4-5.0); ALBUMIN/GLOBULIN RATIO 0.8 (1.1-1.5); ALKALINE PHOSPHATASE 68 IU/L (46-116); ANION GAP 5 (8-16); ASPARTATE AMINO TRANSFERASE 22 U/L (10-37); BILIRUBIN,TOTAL 1.1 MG/DL (0.1-1.0); BLOOD UREA NITROGEN 4 MG/DL (7-18); BUN/CREATININE RATIO 5.3 (6.6-38.0); CALCIUM 8.5 MG/DL (8.5-10.1); CHLORIDE 106 MMOL/L (99-107); CREATININE 0.76 MG/DL (0.40-0.90); GLUCOSE 86 MG/DL (70-104); MAGNESIUM 1.9 MG/DL (1.5-2.4); PHOSPHORUS 3.5 MG/DL (2.3-4.5); POTASSIUM 3.9 MMOL/L (3.5-5.1); SODIUM 140 MMOL/L (135-145); TOTAL CARBON DIOXIDE 28.7 MMOL/L (24-32); TOTAL PROTEIN 7.7 G/DL (6.4-8.2); eGFR > 90 ML/MIN
[2019-03-03 06:22] LABS: LARGE PLATELETS FEW; PLATELET ESTIMATE NORMAL
[2019-03-03 07:00] VITALS: BP 142/105
--- NOTE | 2019-03-03 07:11 | NUR ---
Patient in room [facility]. I have received report from Cyndie LUZ and had the opportunity to ask questions and assume patient care.
[2019-03-03] MEDS: oxyCODONE SR 10mg (sust. release) tab PO SCH (07:55)
[2019-03-03] MEDS: duloxetine 30mg CAPSULE.DR PO SCH (07:56)
[2019-03-03] MEDS: gabapentin 300mg capsule PO SCH ×2 (07:56→13:17)
[2019-03-03] MEDS: docusate sod 100mg capsule PO SCH (07:56)
[2019-03-03 08:00] VITALS: BP 139/96
[2019-03-03 10:00] VITALS: BP 136/85
[2019-03-03] MEDS ORDERED: COL100C PO (10:33)
[2019-03-03 11:28] VITALS: BP 125/82
--- NOTE | 2019-03-03 17:56 | NUR ---
Patient was going not wanting to be discharged and I advised her of her rights and responsibilites and she could contact Medicare if she does not want to be discharged. Patient decided after speaking to her mother to be discharged. Patients discharge instructions reviewed with patient and patient verbalized understanding. Patients IV dc'd canula intact. Patient was taken to lobby to wait for mother.
== END 2019-03-03 13:20 | disposition home or self-care (01) | DRG 812 ==
LOC: ER 22:13 → SUR 3N 03-02 04:11
PROVIDERS: ADMIT Internal Medicine; ATTEND Family Medicine
DX: D57.00 Hb-SS disease with crisis, unspecified (principal); Z68.41 Body mass index [BMI] 40.0-44.9, adult; R65.10 Systemic inflammatory response syndrome (SIRS) of non-infectious origin without acute organ dysfunction; Z79.01 Long term (current) use of anticoagulants; Z83.2 Family history of diseases of the blood and blood-forming organs and certain disorders involving the immune mechanism; Z86.718 Personal history of other venous thrombosis and embolism
CPT/HCPCS: 36415; 71045; 80053; 81001; 81025; 83735; 84100; 84484; 85025; 85045; 85610; 85730; 87081; 93005; 96374; 96375; 96376; 99285; G0378; J1170; J2270; J2405; J7030

== ENCOUNTER 2019-03-17 17:34 | Inpatient (IN) | payer MEDICARE, MEDICAID ==
[~2019-03-17] VITALS: Ht 160 cm; Wt 120.0 kg
[~2019-03-17 17:34] MED LIST changes: +CLON0.1T2 PO; -CLON0.1T20 PO; +COL100C PO; -OXYC10TA47 PO
[2019-03-17] MEDS ORDERED: normal saline 1000ML IV soln IVB ONE (18:15)
[2019-03-17] MEDS ORDERED: morphine 2 MG/ML inj. syringe IV PRN (18:15)
--- NOTE | 2019-03-17 19:53 | NUR ---
relieving RN for break, laborer pole crew at bedside, neurotele consult initiated
[2019-03-17 20:37] LABS: ABSOLUTE RETICS # 229800 /CUMM (23000-93000); BASOPHILS # (AUTO) 0.1 X10'3 (0-0.2); BASOPHILS % (AUTO) 0.7 % (0-1); EOSINOPHILS # (AUTO) 0.5 X10'3 (0-0.9); EOSINOPHILS % (AUTO) 3.3 % (0-6); HEMATOCRIT 37.4 % (35.0-45.0); HEMOGLOBIN 12.5 g/dl (12.0-16.0); LYMPHOCYTES # (AUTO) 2.9 X10'3 (1.1-4.8); MEAN CORPUSCULAR HEMOGLOBIN 31.3 PG (27.0-31.0); MEAN CORPUSCULAR HGB CONC 33.4 g/dL (33.0-36.5); MEAN CORPUSCULAR VOLUME 93.7 FL (78-98); MEAN PLATELET VOLUME 8.8 FL (7.4-10.4); MONOCYTES # (AUTO) 1.2 X10'3 (0-0.9); MONOCYTES % (AUTO) 7.8 % (2-12); NEUTROPHILS % (AUTO) 68.2 % (42-75); PLATELET COUNT 330 X10'3 (140-440); RED BLOOD COUNT 3.99 X10'6 (4.20-5.60); RED CELL DISTRIBUTION WIDTH 17.2 % (11.5-14.5); RETICULOCYTE % (AUTO) 5.8 % (0.5-1.5); WHITE BLOOD COUNT 14.7 X10'3 (4.5-11.0)
[2019-03-17 20:45] LABS: ALANINE AMINOTRANSFERASE 34 U/L (12-78); ALBUMIN 3.8 G/DL (3.4-5.0); ALBUMIN/GLOBULIN RATIO 0.7 (1.1-1.5); ALKALINE PHOSPHATASE 100 IU/L (46-116); ANION GAP 8 (8-16); BILIRUBIN,TOTAL 1.3 MG/DL (0.1-1.0); BLOOD UREA NITROGEN 5 MG/DL (7-18); BUN/CREATININE RATIO 7.7 (6.6-38.0); CALCIUM 9.4 MG/DL (8.5-10.1); CHLORIDE 101 MMOL/L (99-107); CREATININE 0.65 MG/DL (0.40-0.90); GLUCOSE 87 MG/DL (70-104); SODIUM 136 MMOL/L (135-145); TOTAL CARBON DIOXIDE 27.3 MMOL/L (24-32); TOTAL PROTEIN 9.3 G/DL (6.4-8.2); eGFR > 90 ML/MIN
[2019-03-17 20:46] LABS: PARTIAL THROMBOPLASTIN TIME 34 SECONDS (22-32)
[2019-03-17] MEDS ORDERED: GABA600T13 PO (20:46)
[2019-03-17] MEDS ORDERED: OXYC20TA55 PO (20:46)
[2019-03-17] MEDS ORDERED: DULO-31 PO (20:46)
[2019-03-17] MEDS ORDERED: HYDR500C2 PO (20:46)
[2019-03-17 20:56] LABS: POTASSIUM 5.2 MMOL/L (3.5-5.1)
[2019-03-17 21:04] LABS: ASPARTATE AMINO TRANSFERASE 59 U/L (10-37)
[2019-03-17] MEDS ORDERED: morphine 4 MG/ML inj SYRINge IV ONE (21:05)
[2019-03-17 21:22] LABS: PLATELET ESTIMATE NORMAL
[2019-03-17 21:23] LABS: ANISOCYTOSIS 1+; TARGET CELLS 2+
[2019-03-17 21:26] LABS: SICKLE CELLS RARE
[2019-03-17] MEDS ORDERED: normal saline 1000ml 1,000 ML IV SCH (21:36)
[2019-03-17] MEDS ORDERED: naloxone 0.4 mg/ml inj IV PRN (21:40)
[2019-03-17] MEDS ORDERED: acetaminophen 325mg tablet PO PRN (21:40)
[2019-03-17] MEDS ORDERED: mag hydrox/Alum hydrox/simeth 30ml oral suspension PO PRN (21:40)
[2019-03-17] MEDS ORDERED: CADD PCA waste documentation MC PRN (21:40)
[2019-03-17] MEDS ORDERED: magnesium hydroxide 30ml (MOM) UD suspension PO PRN (21:40)
[2019-03-17] MEDS ORDERED: ondansetron/PF 4mg/2ml inj IV PRN (21:40)
[2019-03-17] MEDS ORDERED: HYDR200C PO (21:52)
[2019-03-17] MEDS ORDERED: warfarin 5mg tablet PO SCH (21:58)
[2019-03-17] MEDS: HYDROmorphone/NS 1 mg/ml CADD 50 ML IV SCH (22:34)
--- NOTE | 2019-03-17 22:45 | NUR ---
RELIEVING RN FOR BREAK, PT STARTED ON CADD PUMP, DEMONSTRATED PROPER USE, NO QUESTIONS
[2019-03-17] MEDS ORDERED: HYDROmorphone/NS 1 mg/ml CADD 50 ML IV SCH (23:00)
--- NOTE | 2019-03-17 23:33 | NUR ---
CALLED TO GIVE REPORT. WAITING FOR RETURN CALL.
[2019-03-17 23:50] VITALS: BP 139/74
[2019-03-18] MEDS: HYDROmorphone/NS 1 mg/ml CADD 50 ML IV SCH ×4 (01:00→07:00)
[2019-03-18 02:00] VITALS: BP 116/75
[2019-03-18] MEDS ORDERED: OXYC-580 PO (02:54)
[2019-03-18] MEDS ORDERED: oxyCODONE IR 5mg (immed. release) tablet PO PRN (03:00)
[2019-03-18 06:00] VITALS: BP 124/87
[2019-03-18 06:13] LABS: CLARITY,URINE CLOUDY (Clear); COLOR,URINE YELLOW (Yellow); GLUCOSE, URINE NEGATIVE (Neg); KETONES,URINE NEGATIVE (Neg); LEUKOCYTE ESTERASE ,URINE SMALL (Neg); NITRITES, URINE NEGATIVE (Neg); OCCULT BLOOD,URINE NEGATIVE (Neg); PROTEIN,URINE NEGATIVE (Neg); UROBILINOGEN,URINE 0.2 E.U/dL (0.2-1.0)
[2019-03-18 06:14] LABS: UA COLLECTION TYPE CLN CATCH MIDSTREAM
[2019-03-18 06:15] LABS: BASOPHILS # (AUTO) 0.1 X10'3 (0-0.2); BASOPHILS % (AUTO) 1.1 % (0-1); EOSINOPHILS # (AUTO) 0.6 X10'3 (0-0.9); EOSINOPHILS % (AUTO) 4.1 % (0-6); HEMATOCRIT 32.3 % (35.0-45.0); HEMOGLOBIN 11.1 g/dl (12.0-16.0); LYMPHOCYTES # (AUTO) 3.5 X10'3 (1.1-4.8); LYMPHOCYTES % (AUTO) 24.8 % (21-51); MEAN CORPUSCULAR HEMOGLOBIN 31.7 PG (27.0-31.0); MEAN CORPUSCULAR HGB CONC 34.3 g/dL (33.0-36.5); MEAN CORPUSCULAR VOLUME 92.3 FL (78-98); MEAN PLATELET VOLUME 9.2 FL (7.4-10.4); MONOCYTES # (AUTO) 1.4 X10'3 (0-0.9); MONOCYTES % (AUTO) 9.7 % (2-12); NEUTROPHILS # (AUTO) 8.4 X10'3 (1.8-7.7); NEUTROPHILS % (AUTO) 60.3 % (42-75); PLATELET COUNT 312 X10'3 (140-440); RED BLOOD COUNT 3.49 X10'6 (4.20-5.60); RED CELL DISTRIBUTION WIDTH 17.2 % (11.5-14.5); WHITE BLOOD COUNT 13.9 X10'3 (4.5-11.0)
--- NOTE | 2019-03-18 06:15 | NUR ---
Patient in room [facility] 4013. I have received report from Jania/Lisandra Foster and had the opportunity to ask questions and assume patient care.
[2019-03-18 06:18] LABS: SQUAMOUS EPITHELIAL CELL,UR MANY /LPF (FEW)
[2019-03-18 06:19] LABS: BACTERIA,URINE 2+ /HPF (Neg); RBC,URINE 0-2 /HPF (0-2)
--- NOTE | 2019-03-18 06:26 | NUR ---
Problems reprioritized. Patient report given, questions answered & plan of care reviewed with SUKH Phan.
[2019-03-18 07:24] LABS: ALANINE AMINOTRANSFERASE 32 U/L (12-78); ALBUMIN 3.3 G/DL (3.4-5.0); ALBUMIN/GLOBULIN RATIO 0.7 (1.1-1.5); ALKALINE PHOSPHATASE 83 IU/L (46-116); ANION GAP 11 (8-16); ASPARTATE AMINO TRANSFERASE 38 U/L (10-37); BILIRUBIN,TOTAL 1.4 MG/DL (0.1-1.0); BLOOD UREA NITROGEN 5 MG/DL (7-18); CALCIUM 8.4 MG/DL (8.5-10.1); CHLORIDE 103 MMOL/L (99-107); CREATININE 0.71 MG/DL (0.40-0.90); GLUCOSE 98 MG/DL (70-104); POTASSIUM 3.6 MMOL/L (3.5-5.1); SODIUM 138 MMOL/L (135-145); TOTAL CARBON DIOXIDE 24.2 MMOL/L (24-32); TOTAL PROTEIN 8.3 G/DL (6.4-8.2); eGFR > 90 ML/MIN
[2019-03-18 07:33] LABS: CHOLESTEROL 157 MG/DL (0-200); HDL CHOLESTEROL 39 MG/DL (35-60); LDL CHOLESTEROL 106 MG/DL (50-100); TRIGLYCERIDES 144 MG/DL (20-135)
[2019-03-18] MEDS ORDERED: FLU VACC QS2019-20 36MOS UP/PF 60 MCG/0.5 ML SYRINGE IMVAC ONE (08:00)
[2019-03-18 08:02] LABS: ANISOCYTOSIS 1+; NUCLEATED RED BLOOD CELLS 1 /100WBC (0-0); PLATELET ESTIMATE NORMAL; TARGET CELLS 2+; TOTAL CELLS COUNTED 100
[2019-03-18] MEDS ORDERED: HYDROcodone/acetaminophen 5mg/325mg tablet PO PRN ×2 (08:55)
[2019-03-18] MEDS ORDERED: potassium CL 10mEq/100ml bag 100 ML IV PRN (08:55)
[2019-03-18] MEDS ORDERED: magnesium Cl slow-release 64mg tablet PO PRN (08:55)
[2019-03-18] MEDS ORDERED: magnesium 4gm in 100ml NS 100 ML IV PRN (08:55)
[2019-03-18] MEDS ORDERED: potassium Cl 20 mEq SR tablet PO PRN ×2 (08:55)
[2019-03-18] MEDS: duloxetine 30mg CAPSULE.DR PO SCH (09:59)
[2019-03-18 10:00] VITALS: BP 117/78
[2019-03-18] MEDS: gabapentin 300mg capsule PO SCH ×3 (10:00→22:31)
[2019-03-18] MEDS: dextrose 5%-normal saline 1,000 ML IV SCH ×2 (11:31→19:23)
--- NOTE | 2019-03-18 12:01 | NUR ---
Pt declined flu vaccine, indicates she will get one after discharge with PCP
[2019-03-18] MEDS: HYDROXYUREA 200 MG PO SCH ×2 (13:00→21:00)
[2019-03-18] MEDS ORDERED: oxyCODONE/APAP 5-325mg tablet PO PRN (13:00)
--- NOTE | 2019-03-18 14:18 | NUR ---
hydroxyurea medication not available from pharm
[2019-03-18] MEDS: oxyCODONE/APAP 10/325mg tablet PO PRN ×2 (16:35→22:31)
[2019-03-18 18:00] VITALS: BP 122/82
--- NOTE | 2019-03-18 18:05 | NUR ---
Problems reprioritized. Patient report given, questions answered & plan of care reviewed with Lisandra Foster
[2019-03-18] MEDS: CefTRIAXone/D5W-Rocephin 1gm 50 ML IV SCH (19:53)
[2019-03-18] MEDS ORDERED: warfarin 5mg tablet PO ONE (21:00)
[2019-03-18 22:00] VITALS: BP 135/92
[2019-03-18] MEDS: Melatonin 3mg tablet PO SCH (22:31)
[2019-03-19 02:00] VITALS: BP 135/91
[2019-03-19] MEDS: dextrose 5%-normal saline 1,000 ML IV SCH ×3 (03:30→16:55)
[2019-03-19] MEDS: oxyCODONE/APAP 10/325mg tablet PO PRN ×4 (04:27→22:04)
[2019-03-19 06:00] VITALS: BP 113/67
--- NOTE | 2019-03-19 06:00 | NUR ---
Patient in room [facility] 4013. I have received report from Lisandra Foster and had the opportunity to ask questions and assume patient care.
--- NOTE | 2019-03-19 06:06 | NUR ---
Problems reprioritized. Patient report given, questions answered & plan of care reviewed with SUKH Phan.
[2019-03-19 07:24] LABS: BASOPHILS # (AUTO) 0.1 X10'3 (0-0.2); BASOPHILS % (AUTO) 0.6 % (0-1); EOSINOPHILS # (AUTO) 0.2 X10'3 (0-0.9); EOSINOPHILS % (AUTO) 1.8 % (0-6); HEMOGLOBIN 10.8 g/dl (12.0-16.0); LYMPHOCYTES # (AUTO) 2.4 X10'3 (1.1-4.8); MEAN CORPUSCULAR HEMOGLOBIN 30.7 PG (27.0-31.0); MEAN CORPUSCULAR HGB CONC 33.6 g/dL (33.0-36.5); MEAN CORPUSCULAR VOLUME 91.3 FL (78-98); MONOCYTES % (AUTO) 8.6 % (2-12); NEUTROPHILS # (AUTO) 8.4 X10'3 (1.8-7.7); PLATELET COUNT 311 X10'3 (140-440); RED CELL DISTRIBUTION WIDTH 16.8 % (11.5-14.5); WHITE BLOOD COUNT 12.2 X10'3 (4.5-11.0)
[2019-03-19 07:30] LABS: RED BLOOD COUNT 3.4 X10'6 (4.20-5.60); RETICULOCYTE % (AUTO) 4.5 % (0.5-1.5)
[2019-03-19 07:44] LABS: ALANINE AMINOTRANSFERASE 28 U/L (12-78); ALBUMIN 3.2 G/DL (3.4-5.0); ALBUMIN/GLOBULIN RATIO 0.7 (1.1-1.5); ALKALINE PHOSPHATASE 72 IU/L (46-116); ANION GAP 8 (8-16); ASPARTATE AMINO TRANSFERASE 31 U/L (10-37); BILIRUBIN,TOTAL 0.9 MG/DL (0.1-1.0); BLOOD UREA NITROGEN 4 MG/DL (7-18); BUN/CREATININE RATIO 5.9 (6.6-38.0); CALCIUM 8.3 MG/DL (8.5-10.1); CHLORIDE 104 MMOL/L (99-107); CREATININE 0.68 MG/DL (0.40-0.90); GLUCOSE 112 MG/DL (70-104); MAGNESIUM 1.9 MG/DL (1.5-2.4); PHOSPHORUS 3.6 MG/DL (2.3-4.5); POTASSIUM 3.8 MMOL/L (3.5-5.1); SODIUM 138 MMOL/L (135-145); TOTAL CARBON DIOXIDE 26.1 MMOL/L (24-32); TOTAL PROTEIN 8.1 G/DL (6.4-8.2); eGFR > 90 ML/MIN
[2019-03-19] MEDS: HYDROXYUREA 200 MG PO SCH ×2 (08:00→13:00)
[2019-03-19] MEDS: CefTRIAXone/D5W-Rocephin 1gm 50 ML IV SCH (08:14)
[2019-03-19] MEDS: duloxetine 30mg CAPSULE.DR PO SCH (08:14)
[2019-03-19] MEDS: gabapentin 300mg capsule PO SCH ×3 (08:14→22:06)
[2019-03-19 09:56] LABS: ANISOCYTOSIS 1+; NUCLEATED RED BLOOD CELLS 3 /100WBC (0-0); PLATELET ESTIMATE NORMAL; TOTAL CELLS COUNTED 100
[2019-03-19 09:57] LABS: POLYCHROMASIA FEW; SPHEROCYTES FEW
[2019-03-19 09:58] LABS: TARGET CELLS 3+
[2019-03-19 10:00] VITALS: BP 137/87
[2019-03-19 14:00] VITALS: BP 142/91
[2019-03-19 18:00] VITALS: BP 124/88
--- NOTE | 2019-03-19 18:26 | NUR ---
Problems reprioritized. Patient report given, questions answered & plan of care reviewed with Chuck Grajeda
[2019-03-19 20:59] LABS: CLARITY,URINE CLEAR (Clear); COLOR,URINE YELLOW (Yellow); GLUCOSE, URINE NEGATIVE (Neg); KETONES,URINE NEGATIVE (Neg); LEUKOCYTE ESTERASE ,URINE NEGATIVE (Neg); NITRITES, URINE NEGATIVE (Neg); OCCULT BLOOD,URINE MODERATE (Neg); PH,URINE 6.5 (4.8-8.0); PROTEIN,URINE TRACE mg/dl (Neg); UA COLLECTION TYPE CLN CATCH MIDSTREAM; UROBILINOGEN,URINE 0.2 E.U/dL (0.2-1.0)
[2019-03-19] MEDS ORDERED: warfarin 5mg tablet PO ONE (21:00)
[2019-03-19 21:11] LABS: BACTERIA,URINE FEW /HPF (Neg); MUCUS STRANDS FEW /LPF (Neg); SQUAMOUS EPITHELIAL CELL,UR MANY /LPF (FEW); WBC,URINE NONE SEEN /HPF (0-4)
[2019-03-19 22:00] VITALS: BP 144/92
[2019-03-19] MEDS: Melatonin 3mg tablet PO SCH (22:05)
[2019-03-19] MEDS: lactobacillus rhamnosus 10,000 MMU CELLS/CAPSULE PO SCH (22:06)
[2019-03-20] MEDS: dextrose 5%-normal saline 1,000 ML IV SCH ×2 (00:55→03:37)
[2019-03-20] MEDS: oxyCODONE/APAP 10/325mg tablet PO PRN ×2 (03:35→09:13)
[2019-03-20 06:00] VITALS: BP 136/72
--- NOTE | 2019-03-20 06:15 | NUR ---
Patient in room [facility] 4013. I have received report from KEVIN LUZ and had the opportunity to ask questions and assume patient care.
[2019-03-20 07:10] LABS: ABSOLUTE RETICS # 110100 /CUMM (23000-93000); BASOPHILS # (AUTO) 0.1 X10'3 (0-0.2); BASOPHILS % (AUTO) 0.4 % (0-1); EOSINOPHILS # (AUTO) 0.2 X10'3 (0-0.9); EOSINOPHILS % (AUTO) 1.2 % (0-6); HEMATOCRIT 30.2 % (35.0-45.0); HEMOGLOBIN 10.2 g/dl (12.0-16.0); LYMPHOCYTES % (AUTO) 23.7 % (21-51); MEAN CORPUSCULAR HEMOGLOBIN 31.3 PG (27.0-31.0); MEAN CORPUSCULAR HGB CONC 33.8 g/dL (33.0-36.5); MEAN CORPUSCULAR VOLUME 92.7 FL (78-98); MEAN PLATELET VOLUME 8.7 FL (7.4-10.4); MONOCYTES # (AUTO) 1.1 X10'3 (0-0.9); MONOCYTES % (AUTO) 8.8 % (2-12); NEUTROPHILS # (AUTO) 8.5 X10'3 (1.8-7.7); NEUTROPHILS % (AUTO) 65.9 % (42-75); PLATELET COUNT 311 X10'3 (140-440); RED BLOOD COUNT 3.26 X10'6 (4.20-5.60); RED CELL DISTRIBUTION WIDTH 16.3 % (11.5-14.5); RETICULOCYTE % (AUTO) 3.4 % (0.5-1.5); WHITE BLOOD COUNT 12.9 X10'3 (4.5-11.0)
[2019-03-20 07:31] LABS: ALANINE AMINOTRANSFERASE 21 U/L (12-78); ALBUMIN 3.2 G/DL (3.4-5.0); ALBUMIN/GLOBULIN RATIO 0.7 (1.1-1.5); ALKALINE PHOSPHATASE 67 IU/L (46-116); ANION GAP 9 (8-16); ASPARTATE AMINO TRANSFERASE 25 U/L (10-37); BLOOD UREA NITROGEN 3 MG/DL (7-18); BUN/CREATININE RATIO 4.3 (6.6-38.0); CALCIUM 7.9 MG/DL (8.5-10.1); CHLORIDE 107 MMOL/L (99-107); GLUCOSE 110 MG/DL (70-104); MAGNESIUM 1.8 MG/DL (1.5-2.4); PHOSPHORUS 2.9 MG/DL (2.3-4.5); POTASSIUM 3.3 MMOL/L (3.5-5.1); SODIUM 140 MMOL/L (135-145); TOTAL CARBON DIOXIDE 23.9 MMOL/L (24-32); TOTAL PROTEIN 7.8 G/DL (6.4-8.2); eGFR > 90 ML/MIN
[2019-03-20] MEDS: gabapentin 300mg capsule PO SCH (08:06)
[2019-03-20] MEDS: CefTRIAXone/D5W-Rocephin 1gm 50 ML IV SCH (08:07)
[2019-03-20] MEDS: duloxetine 30mg CAPSULE.DR PO SCH (08:07)
[2019-03-20] MEDS: lactobacillus rhamnosus 10,000 MMU CELLS/CAPSULE PO SCH (08:07)
[2019-03-20 10:00] VITALS: BP 113/74
[2019-03-20] MEDS ORDERED: MELA3TAB64 PO (10:08)
[2019-03-20] MEDS ORDERED: STORE MEDs IN PHARMACY MC (10:08)
[2019-03-20] MEDS ORDERED: LACT1CAP26 PO (10:08)
[2019-03-20] MEDS ORDERED: CEFD300C3 PO (10:08)
[2019-03-20] MEDS ORDERED: Non-Formulary PO (10:08)
[2019-03-20] MEDS ORDERED: warfarin 5mg tablet PO ONE (10:15)
[2019-03-20 12:25] LABS: PREOP URINE HCG NEGATIVE (NEGATIVE)
--- NOTE | 2019-03-20 13:00 | NUR ---
PATIENT DISCHARGED SAFELY WITH MOM. ALL BELONGINGS IN POSSESSION, INCLUDING HOME MEDICATIONS THAT WERE BROUGHT IN TO PHARMACY. PATIENT VERBALIZES UNDERSTANDING OF ALL DC INSTRUCTIONS.
== END 2019-03-20 13:11 | disposition home or self-care (01) | DRG 812 ==
LOC: ER 17:35 → ED HOLD 21:50 → ORTHO 4S 23:55
PROVIDERS: ADMIT Internal Medicine; ATTEND Family Medicine
DX: D57.1 Sickle-cell disease without crisis (principal); Z68.42 Body mass index [BMI] 45.0-49.9, adult; N39.0 Urinary tract infection, site not specified; F11.10 Opioid abuse, uncomplicated; F32.9 Major depressive disorder, single episode, unspecified; G89.29 Other chronic pain; Z79.01 Long term (current) use of anticoagulants; Z83.2 Family history of diseases of the blood and blood-forming organs and certain disorders involving the immune mechanism; Z86.718 Personal history of other venous thrombosis and embolism; Z28.21 Immunization not carried out because of patient refusal; Z86.73 Personal history of transient ischemic attack (TIA), and cerebral infarction without residual deficits; Z88.8 Allergy status to other drugs, medicaments and biological substances
CPT/HCPCS: 36415; 70450; 70544; 70551; 71045; 80053; 80061; 81001; 81025; 83735; 84100; 85025; 85045; 85610; 85730; 87081; 93005; 96374; 96376; 97116; 97161; 97530; 99285; G0378; J0696; J1170; J2270; J7030; J7042; Q2037

== ENCOUNTER 2019-05-26 09:39 | Emergency (ER) | payer MEDICARE, MEDICAID ==
[~2019-05-26] VITALS: Ht 162.6 cm; Wt 115.2 kg
[~2019-05-26 09:39] MED LIST changes: -CLON0.1T2 PO; -COL100C PO; +DULO-31 PO; -DULO60CA65 PO; -HYDR-3717 PO; +LACT1CAP26 PO; +MELA3TAB64 PO; +Non-Formulary PO; +OXYC-580 PO; -OXYC-658 PO; +STORE MEDs IN PHARMACY MC
[2019-05-26] MEDS ORDERED: normal saline 1000ml 1,000 ML IV ONE (11:19)
[2019-05-26] MEDS ORDERED: normal saline 1000ML IV soln IVB ONE (11:20)
[2019-05-26] MEDS ORDERED: diphenhydrAMINE 50 mg/ml inj IV ONE (11:25)
[2019-05-26] MEDS ORDERED: morphine 4 MG/ML inj SYRINge IV ONE ×2 (11:25→13:30)
[2019-05-26] MEDS ORDERED: ondansetron/PF 4mg/2ml inj IV ONE (11:45)
[2019-05-26 12:24] LABS: BASOPHILS # (AUTO) 0.2 X10'3 (0-0.2); BASOPHILS % (AUTO) 1.5 % (0-1); EOSINOPHILS # (AUTO) 0.3 X10'3 (0-0.9); EOSINOPHILS % (AUTO) 2.3 % (0-6); HEMATOCRIT 29.8 % (35.0-45.0); HEMOGLOBIN 10.3 g/dl (12.0-16.0); LYMPHOCYTES % (AUTO) 24.9 % (21-51); MEAN CORPUSCULAR HEMOGLOBIN 29.9 PG (27.0-31.0); MEAN CORPUSCULAR HGB CONC 34.6 g/dL (33.0-36.5); MEAN CORPUSCULAR VOLUME 86.6 FL (78-98); MEAN PLATELET VOLUME 8.7 FL (7.4-10.4); MONOCYTES # (AUTO) 0.9 X10'3 (0-0.9); MONOCYTES % (AUTO) 7.2 % (2-12); NEUTROPHILS # (AUTO) 7.7 X10'3 (1.8-7.7); NEUTROPHILS % (AUTO) 64.1 % (42-75); PLATELET COUNT 413 X10'3 (140-440); RED BLOOD COUNT 3.44 X10'6 (4.20-5.60); RED CELL DISTRIBUTION WIDTH 17.1 % (11.5-14.5)
--- NOTE | 2019-05-26 12:31 | NUR ---
UPDATED PT VS, SENT URINE TO LAB PER ORDERS, NOTIFIED DR MARIO PT PAIN 12/15 AFTER FIRST DOSE OF MORPHINE, NO ORDER RECEIVED AT THIS TIME.
[2019-05-26 12:40] LABS: ALANINE AMINOTRANSFERASE 13 U/L (12-78); ALBUMIN 3.2 G/DL (3.4-5.0); ALBUMIN/GLOBULIN RATIO 0.8 (1.1-1.5); ALKALINE PHOSPHATASE 69 IU/L (46-116); ANION GAP 4 (8-16); ASPARTATE AMINO TRANSFERASE 20 U/L (10-37); BILIRUBIN,TOTAL 1.3 MG/DL (0.1-1.0); BLOOD UREA NITROGEN 7 MG/DL (7-18); BUN/CREATININE RATIO 9.3 (6.6-38.0); CALCIUM 7.6 MG/DL (8.5-10.1); CHLORIDE 108 MMOL/L (99-107); CREATININE 0.75 MG/DL (0.40-0.90); GLUCOSE 90 MG/DL (70-104); POTASSIUM 3.7 MMOL/L (3.5-5.1); SODIUM 140 MMOL/L (135-145); TOTAL CARBON DIOXIDE 28.3 MMOL/L (24-32); TOTAL PROTEIN 7.2 G/DL (6.4-8.2); eGFR > 90 ML/MIN
[2019-05-26 12:44] LABS: TROPONIN I < 0.04 NG/ML (0.0-0.05)
[2019-05-26 12:48] LABS: CLARITY,URINE SLIGHTLY CLOUDY (Clear); COLOR,URINE STRAW (Yellow); GLUCOSE, URINE NEGATIVE (Neg); KETONES,URINE NEGATIVE (Neg); LEUKOCYTE ESTERASE ,URINE NEGATIVE (Neg); NITRITES, URINE NEGATIVE (Neg); OCCULT BLOOD,URINE NEGATIVE (Neg); PROTEIN,URINE NEGATIVE (Neg)
[2019-05-26 12:49] LABS: UA COLLECTION TYPE CLN CATCH MIDSTREAM
[2019-05-26 12:59] LABS: URINE HCG NEGATIVE (NEG)
[2019-05-26 13:03] LABS: BACTERIA,URINE FEW /HPF (Neg); MUCUS STRANDS FEW /LPF (Neg); RBC,URINE 0-2 /HPF (0-2); SQUAMOUS EPITHELIAL CELL,UR MODERATE /LPF (FEW); WBC,URINE 0-4 /HPF (0-4)
--- NOTE | 2019-05-26 14:16 | NUR ---
PT GIVEN JOSI MCCARTNEY OK PER DR MARIO. NO MORE PAIN MEDS AT THIS TIME. WILL BE DC WITH RX.
--- NOTE | 2019-05-26 14:27 | NUR ---
NOTIFY DR HUNT REGARDING PT'S BP. NO ORDERS RECEIVED.
[2019-05-26 15:22] VITALS: BP 130/86
== END 2019-05-26 15:24 | disposition home or self-care (01) ==
LOC: ER 09:40
DX: D57.1 Sickle-cell disease without crisis (principal); R07.89 Other chest pain; E66.9 Obesity, unspecified; Z86.718 Personal history of other venous thrombosis and embolism; Z79.01 Long term (current) use of anticoagulants; Z88.8 Allergy status to other drugs, medicaments and biological substances; Z79.899 Other long term (current) drug therapy
CPT/HCPCS: 36415; 80053; 81001; 81025; 84484; 85025; 85610; 93005; 96374; 96375; 96376; 99284; J1200; J2270; J2405; J7030

== ENCOUNTER 2019-05-29 17:52 | Emergency (ER) | payer MEDICARE, MEDICAID ==
[~2019-05-29] VITALS: Ht 160 cm; Wt 115.5 kg
[2019-05-29 19:33] LABS: BASOPHILS # (AUTO) 0.1 X10'3 (0-0.2); BASOPHILS % (AUTO) 0.5 % (0-1); EOSINOPHILS # (AUTO) 0.3 X10'3 (0-0.9); EOSINOPHILS % (AUTO) 2.5 % (0-6); HEMATOCRIT 33.3 % (35.0-45.0); HEMOGLOBIN 11.5 g/dl (12.0-16.0); LYMPHOCYTES # (AUTO) 2.8 X10'3 (1.1-4.8); LYMPHOCYTES % (AUTO) 21.2 % (21-51); MEAN CORPUSCULAR HGB CONC 34.5 g/dL (33.0-36.5); MEAN CORPUSCULAR VOLUME 87.1 FL (78-98); MONOCYTES # (AUTO) 0.8 X10'3 (0-0.9); MONOCYTES % (AUTO) 5.7 % (2-12); NEUTROPHILS # (AUTO) 9.4 X10'3 (1.8-7.7); NEUTROPHILS % (AUTO) 70.1 % (42-75); PLATELET COUNT 445 X10'3 (140-440); RED BLOOD COUNT 3.82 X10'6 (4.20-5.60); RED CELL DISTRIBUTION WIDTH 17.1 % (11.5-14.5); WHITE BLOOD COUNT 13.3 X10'3 (4.5-11.0)
[2019-05-29 19:40] LABS: RED BLOOD COUNT 3.88 X10'6 (4.20-5.60); RETICULOCYTE % (AUTO) 3.2 % (0.5-1.5)
[2019-05-29] MEDS ORDERED: morphine 10mg/ml inj. IM ONE (20:10)
[2019-05-29] MEDS ORDERED: morphine 5 MG/ML injection IM ONE (20:10)
[2019-05-29 20:46] VITALS: BP 114/68
== END 2019-05-29 20:54 | disposition home or self-care (01) ==
LOC: ER 17:53
DX: D57.1 Sickle-cell disease without crisis (principal); R07.89 Other chest pain; Z86.718 Personal history of other venous thrombosis and embolism; Z87.01 Personal history of pneumonia (recurrent); Z79.01 Long term (current) use of anticoagulants; Z88.8 Allergy status to other drugs, medicaments and biological substances
CPT/HCPCS: 36415; 85025; 85045; 93005; 96372; 99284; J2270

== ENCOUNTER 2019-09-09 10:58 | Emergency (ER) | payer MEDICARE, MEDICAID ==
[~2019-09-09] VITALS: Ht 160 cm; Wt 118.2 kg
[~2019-09-09 10:58] MED LIST changes: -LACT1CAP26 PO; -MELA3TAB64 PO; -Non-Formulary PO; -OXYC-580 PO; +OXYC10TA47 PO; -STORE MEDs IN PHARMACY MC
[2019-09-09] MEDS ORDERED: diphenhydrAMINE 50 mg/ml inj IV ONE (11:40)
[2019-09-09] MEDS ORDERED: ondansetron/PF 4mg/2ml inj IV ONE (11:40)
[2019-09-09] MEDS ORDERED: morphine 4 MG/ML inj SYRINge IV ONE ×2 (11:40→13:05)
[2019-09-09 11:47] LABS: BASOPHILS # (AUTO) 0.1 X10'3 (0-0.2); HEMATOCRIT 31.9 % (35.0-45.0); HEMOGLOBIN 10.8 g/dl (12.0-16.0); LYMPHOCYTES # (AUTO) 1.9 X10'3 (1.1-4.8); LYMPHOCYTES % (AUTO) 19.5 % (21-51); MEAN CORPUSCULAR HEMOGLOBIN 29.6 PG (27.0-31.0); MEAN CORPUSCULAR HGB CONC 33.8 g/dL (33.0-36.5); MEAN CORPUSCULAR VOLUME 87.8 FL (78-98); MEAN PLATELET VOLUME 8.8 FL (7.4-10.4); MONOCYTES # (AUTO) 0.8 X10'3 (0-0.9); MONOCYTES % (AUTO) 7.7 % (2-12); NEUTROPHILS # (AUTO) 6.2 X10'3 (1.8-7.7); NEUTROPHILS % (AUTO) 61.8 % (42-75); PLATELET COUNT 386 X10'3 (140-440); RED BLOOD COUNT 3.64 X10'6 (4.20-5.60); RED CELL DISTRIBUTION WIDTH 17.9 % (11.5-14.5)
[2019-09-09 11:56] LABS: ALANINE AMINOTRANSFERASE 14 U/L (12-78); ALBUMIN 3.6 G/DL (3.4-5.0); ALBUMIN/GLOBULIN RATIO 0.8 (1.1-1.5); ALKALINE PHOSPHATASE 82 IU/L (46-116); ANION GAP 8 (8-16); ASPARTATE AMINO TRANSFERASE 28 U/L (10-37); BILIRUBIN,TOTAL 1.2 MG/DL (0.1-1.0); BLOOD UREA NITROGEN 6 MG/DL (7-18); BUN/CREATININE RATIO 7.1 (6.6-38.0); CHLORIDE 104 MMOL/L (99-107); CREATININE 0.84 MG/DL (0.40-0.90); GLUCOSE 96 MG/DL (70-104); POTASSIUM 3.9 MMOL/L (3.5-5.1); SODIUM 138 MMOL/L (135-145); TOTAL CARBON DIOXIDE 25.6 MMOL/L (24-32); eGFR > 90 ML/MIN
--- NOTE | 2019-09-09 12:30 | NUR ---
VASSCULAR AT BEDSIDE FOR US.
[2019-09-09] MEDS ORDERED: iohexol 350MG/ML 100ml bottle IV ONE ×2 (13:00→13:35)
--- NOTE | 2019-09-09 13:00 | NUR ---
DR MARIO NOTIFIED THAT PT CONTINUES TO HAVE PAIN OF 8/10 AFTER 4MG MORPHINE IV. AWAITING NEW ORDERS, PT NOTIFIED
--- NOTE | 2019-09-09 13:37 | NUR ---
PT TO CT
[2019-09-09 15:21] VITALS: BP 127/78
== END 2019-09-09 15:24 | disposition home or self-care (01) ==
LOC: ER 10:58
DX: R07.89 Other chest pain (principal); D57.20 Sickle-cell/Hb-C disease without crisis; R60.0 Localized edema; Z87.01 Personal history of pneumonia (recurrent); Z86.718 Personal history of other venous thrombosis and embolism; Z79.01 Long term (current) use of anticoagulants; Z79.899 Other long term (current) drug therapy
CPT/HCPCS: 36415; 71045; 71275; 80053; 84484; 85025; 85610; 93005; 93970; 96374; 96375; 96376; 99285; J1200; J2270; J2405; Q9967

== ENCOUNTER 2019-10-17 01:18 | Emergency (ER) | payer MEDICARE, MEDICAID ==
[~2019-10-17] VITALS: Ht 160 cm; Wt 118.2 kg
[2019-10-17] MEDS ORDERED: metoclopramide 5 mg/ml inj IV ONE (01:25)
[2019-10-17] MEDS ORDERED: diphenhydrAMINE 50 mg/ml inj IV ONE (01:25)
[2019-10-17] MEDS ORDERED: divalproex sodium 500mg tablet.DR PO SCH (01:25)
[2019-10-17] MEDS ORDERED: normal saline 1000ML IV soln IVB ONE (01:25)
[2019-10-17] MEDS ORDERED: ketorolac trometh. 30mg/ml inj. IV ONE (01:25)
[2019-10-17] MEDS ORDERED: magnesium 2GM in 50ml NS 50 ML IV ONE (01:25)
[2019-10-17] MEDS ORDERED: oxyCODONE IR 5mg (immed. release) tablet PO ONE (02:35)
[2019-10-17 03:42] VITALS: BP 119/85
== END 2019-10-17 03:43 | disposition home or self-care (01) ==
LOC: ER 01:18
DX: R51 Headache (principal); Z86.14 Personal history of Methicillin resistant Staphylococcus aureus infection; Z88.8 Allergy status to other drugs, medicaments and biological substances; Z79.01 Long term (current) use of anticoagulants; Z79.899 Other long term (current) drug therapy
CPT/HCPCS: 70450; 96365; 96366; 96375; 99284; J1200; J1885; J2765; J3475; J7030

== ENCOUNTER 2020-01-20 06:42 | Emergency (ER) | payer MEDICARE, MEDICAID ==
[~2020-01-20] VITALS: Ht 160 cm; Wt 118.2 kg
[2020-01-20] MEDS ORDERED: aspirin 81mg tab.chew PO ONE (06:50)
[2020-01-20] MEDS ORDERED: HYDROmorphone 1 mg/ml syringe IV ONE ×2 (07:00→08:10)
[2020-01-20] MEDS ORDERED: ondansetron/PF 4mg/2ml inj IV ONE (07:00)
[2020-01-20 07:27] LABS: ABSOLUTE RETICS # 137000 /CUMM (23000-93000); BASOPHILS # (AUTO) 0.1 X10'3 (0-0.2); BASOPHILS % (AUTO) 0.8 % (0-1); EOSINOPHILS # (AUTO) 0.3 X10'3 (0-0.9); EOSINOPHILS % (AUTO) 2.2 % (0-6); HEMATOCRIT 30.5 % (35.0-45.0); HEMOGLOBIN 10.1 g/dl (12.0-16.0); LYMPHOCYTES # (AUTO) 3.9 X10'3 (1.1-4.8); LYMPHOCYTES % (AUTO) 29.8 % (21-51); MEAN CORPUSCULAR HEMOGLOBIN 28.4 PG (27.0-31.0); MEAN CORPUSCULAR HGB CONC 33.1 g/dL (33.0-36.5); MEAN CORPUSCULAR VOLUME 85.8 FL (78-98); MEAN PLATELET VOLUME 8.5 FL (7.4-10.4); MONOCYTES # (AUTO) 0.8 X10'3 (0-0.9); MONOCYTES % (AUTO) 5.8 % (2-12); NEUTROPHILS # (AUTO) 8.1 X10'3 (1.8-7.7); NEUTROPHILS % (AUTO) 61.4 % (42-75); PLATELET COUNT 389 X10'3 (140-440); RED BLOOD COUNT 3.56 X10'6 (4.20-5.60); RED CELL DISTRIBUTION WIDTH 17.2 % (11.5-14.5); RETICULOCYTE % (AUTO) 3.9 % (0.5-1.5); WHITE BLOOD COUNT 13.1 X10'3 (4.5-11.0)
[2020-01-20 07:39] LABS: PARTIAL THROMBOPLASTIN TIME 42 SECONDS (22-32)
[2020-01-20 07:41] LABS: ALANINE AMINOTRANSFERASE 23 U/L (12-78); ALBUMIN 3.6 G/DL (3.4-5.0); ALBUMIN/GLOBULIN RATIO 0.8 (1.1-1.5); ALKALINE PHOSPHATASE 58 IU/L (46-116); ANION GAP 9 (8-16); ASPARTATE AMINO TRANSFERASE 20 U/L (10-37); BILIRUBIN,TOTAL 0.8 MG/DL (0.1-1.0); BLOOD UREA NITROGEN 6 MG/DL (7-18); BUN/CREATININE RATIO 7.2 (6.6-38.0); CALCIUM 8.3 MG/DL (8.5-10.1); CHLORIDE 104 MMOL/L (99-107); CREATININE 0.83 MG/DL (0.40-0.90); GLUCOSE 92 MG/DL (70-104); POTASSIUM 3.4 MMOL/L (3.5-5.1); SODIUM 139 MMOL/L (135-145); TOTAL CARBON DIOXIDE 26.4 MMOL/L (24-32); TOTAL PROTEIN 8.1 G/DL (6.4-8.2); eGFR > 90 ML/MIN
[2020-01-20 07:49] LABS: LACTATE DEHYDROGENASE 212 U/L (81-234); MAGNESIUM 2.1 MG/DL (1.5-2.4)
--- NOTE | 2020-01-20 08:17 | NUR ---
Left a message for pt's mother, Eugenie, to call us as soon as she gets the message.
[2020-01-20 09:17] VITALS: BP 131/88
== END 2020-01-20 09:18 | disposition home or self-care (01) ==
LOC: ER 06:43
DX: D57.1 Sickle-cell disease without crisis (principal); R07.89 Other chest pain; Z86.718 Personal history of other venous thrombosis and embolism; Z88.8 Allergy status to other drugs, medicaments and biological substances; Z79.01 Long term (current) use of anticoagulants; Z79.899 Other long term (current) drug therapy
CPT/HCPCS: 36415; 71045; 80053; 83615; 83735; 83880; 84484; 85025; 85045; 85610; 85730; 93005; 96374; 96375; 96376; 99285; J1170; J2405

== ENCOUNTER 2020-02-20 10:30 | Emergency (ER) | payer MEDICARE, MEDICAID ==
[~2020-02-20] VITALS: Ht 160 cm; Wt 117.0 kg
[2020-02-20] MEDS ORDERED: ondansetron/PF 4mg/2ml inj IV ONE ×3 (11:25→14:05)
[2020-02-20] MEDS ORDERED: HYDROmorphone 1 mg/ml syringe IV ONE (11:25)
[2020-02-20] MEDS ORDERED: normal saline 1000ml 1,000 ML IV ONE ×2 (11:30)
[2020-02-20 11:31] LABS: PARTIAL THROMBOPLASTIN TIME 49 SECONDS (22-32)
[2020-02-20 11:35] LABS: ABSOLUTE RETICS # 209000 /CUMM (23000-93000); BASOPHILS # (AUTO) 0.1 X10'3 (0-0.2); BASOPHILS % (AUTO) 1.1 % (0-1); EOSINOPHILS # (AUTO) 0.5 X10'3 (0-0.9); EOSINOPHILS % (AUTO) 4.3 % (0-6); HEMATOCRIT 31.7 % (35.0-45.0); HEMOGLOBIN 10.5 g/dl (12.0-16.0); LYMPHOCYTES % (AUTO) 15.6 % (21-51); MEAN CORPUSCULAR HEMOGLOBIN 29.9 PG (27.0-31.0); MEAN CORPUSCULAR HGB CONC 33.1 g/dL (33.0-36.5); MEAN CORPUSCULAR VOLUME 90.5 FL (78-98); MEAN PLATELET VOLUME 8.5 FL (7.4-10.4); MONOCYTES # (AUTO) 0.9 X10'3 (0-0.9); MONOCYTES % (AUTO) 7.1 % (2-12); NEUTROPHILS # (AUTO) 9.1 X10'3 (1.8-7.7); NEUTROPHILS % (AUTO) 71.9 % (42-75); PLATELET COUNT 430 X10'3 (140-440); RED BLOOD COUNT 3.51 X10'6 (4.20-5.60); RED CELL DISTRIBUTION WIDTH 18.2 % (11.5-14.5); WHITE BLOOD COUNT 12.7 X10'3 (4.5-11.0)
[2020-02-20 11:45] LABS: ALANINE AMINOTRANSFERASE 15 U/L (12-78); ALBUMIN 3.7 G/DL (3.4-5.0); ALBUMIN/GLOBULIN RATIO 0.8 (1.1-1.5); ALKALINE PHOSPHATASE 67 IU/L (46-116); ANION GAP 10 (8-16); ASPARTATE AMINO TRANSFERASE 25 U/L (10-37); BILIRUBIN,TOTAL 0.9 MG/DL (0.1-1.0); BLOOD UREA NITROGEN 7 MG/DL (7-18); BUN/CREATININE RATIO 8.8 (6.6-38.0); CHLORIDE 105 MMOL/L (99-107); GLUCOSE 111 MG/DL (70-104); POTASSIUM 3.5 MMOL/L (3.5-5.1); SODIUM 140 MMOL/L (135-145); TOTAL CARBON DIOXIDE 25.1 MMOL/L (24-32); TOTAL PROTEIN 8.4 G/DL (6.4-8.2); eGFR > 90 ML/MIN
[2020-02-20] MEDS ORDERED: morphine 4 MG/ML inj SYRINge IV ONE ×3 (12:05→14:05)
--- NOTE | 2020-02-20 12:11 | NUR ---
cleaning technician at bedside doing US of right leg.
[2020-02-20 12:45] LABS: PLATELET ESTIMATE NORMAL; TARGET CELLS 4+
[2020-02-20 13:00] LABS: ANISOCYTOSIS 1+; POIKILOCYTOSIS 2+; SICKLE CELLS FEW; SPHEROCYTES 1+; TEAR DROP CELLS FEW
[2020-02-20 13:03] LABS: HOWELL-JOLLY BODIES FEW
[2020-02-20 13:04] LABS: SCHISTOCYTES FEW
[2020-02-20 13:07] LABS: STOMATOCYTES FEW
[2020-02-20 13:29] LABS: LARGE PLATELETS FEW
[2020-02-20 15:13] VITALS: BP 130/95
== END 2020-02-20 15:18 | disposition home or self-care (01) ==
LOC: ER 10:30
DX: D57.00 Hb-SS disease with crisis, unspecified (principal); R07.89 Other chest pain; Z86.718 Personal history of other venous thrombosis and embolism; Z88.0 Allergy status to penicillin; Z79.01 Long term (current) use of anticoagulants; Z79.899 Other long term (current) drug therapy
CPT/HCPCS: 36415; 80053; 83880; 84484; 85025; 85045; 85610; 85730; 93005; 93971; 96361; 96374; 96375; 96376; 99285; J2270; J2405; J7030; 85008; 99284